=== PATIENT | male | born 1965 | race Caucasian/White ===

== ENCOUNTER 2016-12-29 19:19 | Emergency (ER) | payer BC ==
--- NOTE | 2016-12-29 19:54 | Emergency Department Record ---
History of Present Illness - General Chief Complaint: Neck Injury/Pain Stated Complaint: RT SIDE STIFF NECK Time Seen by Provider: 12/29/16 19:53 Source: Patient Mode of Arrival: Ambulatory Limitations: No limitations - History of Present Illness Initial Comments: The patient is here due to waking up this AM with R posterior neck pain. Later the pain worsened and now it is much worse with any head movement or twisting. He denies any trauma, headache, arm or leg numbness, tingling or weakness. He also denies any ST but has had a mild dry cough. MD Complaint: Neck pain Onset/Timin -: Days(s) Place: Home Severity: Mild Severity scale (1-10): 2 Quality: Sharp Consistency: Constant, Intermittent Improves With: Medication OTC/prescribed, Remaining still Worsens With: Movement of neck Associated Symptoms: None Treatments Prior to Arrival: Ibuprofen - Related Data Previous Rx's Medication Instructions Recorded Albuterol Sulfate 0.083% [Neb] 3 ml NEB .EVERY 4-6 HOURS PRN #30 03/14/ ml Cyclobenzaprine HCl [Flexeril] 10 mg PO TID PRN #20 tablet 12/29/16 Naproxen [Naprosyn] 500 mg PO BID #14 tablet. 12/29/16 Allergies Allergy/AdvReac Type Severity Reaction Status Date / Time lisinopril AdvReac vision Verified 12/29/16 19:38 problems Travel Screening - Travel/Exposure Within Last 30 Days Have you traveled within the last 30 days?: No - Travel/Exposure Within Last Year Have you traveled outside the [place] in the last year?: No - Additonal Travel Details Have you been exposed to anyone with a communicable illness?: No - Travel Symptoms Symptom Screening: None Review of Systems Constitutional: Denies: Chills, Fever Eyes: Denies: Eye discharge ENT: Denies: Congestion Respiratory: Reports: Cough. Denies: Dyspnea Cardiovascular: Denies: Arrhythmia, Chest pain Past Medical History - SOCIAL HISTORY Smoking Status: Former smoker Alcohol Use: None Drug Use: None - RESPIRATORY Hx Respiratory Disorders: Yes Hx Asthma: Yes Hx Bronchitis: Yes Hx Pneumonia: Yes Hx Sleep Apnea: Yes Hx of CPAP: Yes Comment:: seasonal allergy injections - CARDIOVASCULAR Hx Cardio Disorders: Yes Hx Hypertension: Yes (borderline-no meds) - NEURO Hx Neuro Disorders: No - GI Hx GI Disorders: Yes Hx of Polyps: Yes - Hx Genitourinary Disorders: No - ENDOCRINE Hx Endocrine Disorders: Yes Hx Diabetes: Yes (pre-diabetic) Hx Thyroid Disease: Yes (takes iodine and otc thyroid enhancement) - MUSCULOSKELETAL Hx Musculoskeletal Disorders: Yes Hx Arthritis: Yes - PSYCH Hx Psych Problems: Yes Hx Anxiety: Yes (20 yrs ago) Hx Depression: Yes - HEMATOLOGY/ONCOLOGY Hx Hematology/Oncology Disorders: No Family Medical History Any Significant Family History?: No Hx Cancer: Mother, Grandparents Hx Diabetes: Father Hx Heart Disease: Mother Hx Kidney Disease: Father Hx Stroke: Grandparents Physical Exam - General General Appearance: Alert, Oriented x3, Cooperative, No acute distress - Head Head exam: Atraumatic, Normocephalic, Normal inspection - Eye Eye exam: Normal appearance, PERRL, EOMI - ENT Throat exam: Normal inspection. negative: Tonsillar erythema, Tonsillar exudate - Neck Neck exam: Normal inspection, Full ROM, Tenderness (The R posterior neck is quite tender with mild spasm present. There is no swelling, bruising, or masses appreciated.), Other (The pain is 100% reproducible with palpation of the R posterior area and head turning to the R.). negative: Lymphadenopathy - Respiratory Respiratory exam: Normal lung sounds bilaterally. negative: Respiratory distress - Cardiovascular Cardiovascular Exam: Regular rate, Normal rhythm, Normal heart sounds - GI/Abdominal GI/Abdominal exam: Soft, Normal bowel sounds. negative: Tenderness - Extremities Extremities exam: Normal inspection, Full ROM, Normal capillary refill. negative: Tenderness - Neurological Neurological exam: Alert, Normal gait, Oriented X3. negative: Abnormal gait, Altered, Motor sensory deficit - Skin Skin exam: negative: Rash Course Vital Signs 12/29/16 19:37 Temperature 98.7 F Pulse Rate 71 Respiratory 22 Rate Blood Pressure 160/85 Pulse Ox 95 - Reevaluation(s) Reevaluation #1: The patient is doing a lot better. His pain is significantly less and he is able to turn his head with improved ROM. He is to rest at home and take the pain medicines as directed. He is to see his PCP if not better in 3 days and return to the ER if worse. 12/29/16 20:43 Disposition Disposition: Discharge Clinical Impression: Cervical paraspinal muscle spasm Disposition: Home, Self-Care Condition: (1) Good Instructions: Muscle Spasm (ED) Additional Instructions: Please rest for the next few days. Take the Naprosyn and Flexeril as directed. Please see your PCP if not better in 3 days. Return to the ER for any increased pain, headache, fever, or any arm or leg numbness or weakness. Prescriptions: Cyclobenzaprine HCl [Flexeril] 10 mg PO TID PRN #20 tablet PRN Reason: Pain Naproxen [Naprosyn] 500 mg PO BID #14 tablet.dr Forms: Patient Portal Access Time of Disposition: 20:42 Quality - Quality Measures Quality Measures: N/A - Blood Pressure Screening View Details: Yes Does Patient Have Any of the Following: No Blood Pressure Classification: Pre-Hypertensive BP Reading Systolic Measurement: 160 Diastolic Measurement: 85 Screening for High Blood Pressure: < Pre-Hypertensive BP, F/U Documented > [ [id number]] Pre-Hypertensive Follow-up Interventions: Referral to alternative/primary care provider.
[2016-12-29] MEDS ORDERED: KETOROLAC 30 MG/ML VIAL IM ONE (19:59)
[2016-12-29] MEDS ORDERED: ORPHENADRINE CITRATE 60MG/2ML VIAL IM ONE (19:59)
== END 2016-12-29 20:52 | disposition home or self-care (01) ==
LOC: ER 19:19
DX: M62.838 Other muscle spasm (principal); R05 Cough
CPT/HCPCS: 99283 ×2; 96372; J1885; J2360

== ENCOUNTER 2019-02-16 03:18 | Emergency (ER) | payer BC ==
--- NOTE | 2019-02-16 03:30 | Emergency Department Record ---
History of Present Illness - General Chief Complaint: Shortness of breath Stated Complaint: SOB Time Seen by Provider: 02/16/19 03:29 Source: Patient Mode of Arrival: Ambulatory Limitations: No limitations - History of Present Illness Initial Comments: 53 yo male presents to ED for evaluation of worsening cough and difficulty in breathing symptoms over the past several days. Patient has been taking Prednisone and Doxycycline for his symptoms for the past several days without improvement. Patient denies chest pain or discomfort, but reports that he is unable to breathe due to his cough symptoms. Patient reports history of frequent episodes of bronchitis and pneumonia. Patient denies fevers, chills, or abdominal pain symptoms on examination. MD Complaint: Cough, Shortness of breath Onset/Timin -: Week(s) Severity: Moderate Quality: Aching Consistency: Constant Improves With: Nothing Worsens With: Inspiration Known History Of: Asthma Associated Symptoms: Denies other symptoms Treatments Prior to Arrival: Bronchodilator - Related Data Home Oxygen Therapy: No Home Medications Medication Instructions Recorded Confirmed Last Taken Hydrocortisone 10 mg PO BID 02/16/19 02/16/19 02/15/19 Mometasone/Formoterol [Dulera 200 2 puff INH BID 02/16/19 02/16/19 02/16/19 Mcg/5 Mcg Inhaler] Previous Rx's Medication Instructions Recorded Ibuprofen [Motrin] 800 mg PO Q6H PRN #30 tab 02/16/19 Prednisone [Prednisone 20Mg] 20 mg PO BID #12 tab 02/16/19 Promethazine HCl/Codeine 5 ml PO Q8H PRN #118 ml 02/16/19 [Phenergan W/Codeine] Allergies Allergy/AdvReac Type Severity Reaction Status Date / Time lisinopril AdvReac vision Verified 12/29/16 19:38 problems all plants AdvReac RASH Uncoded 02/16/19 03:48 Review of Systems Constitutional: Denies: Chills, Fever, Malaise, Night sweats Eyes: Denies: Eye discharge, Eye pain ENT: Reports: Congestion. Denies: Ear pain, Epistaxis Respiratory: Reports: Cough, Dyspnea, Wheezes Cardiovascular: Reports: Dyspnea on exertion. Denies: Chest pain, Edema, Palpitations Endocrine: Denies: Fatigue, Heat or cold intolerance Gastrointestinal: Denies: Abdominal pain, Nausea, Vomiting Genitourinary: Denies: Incontinence, Retention Musculoskeletal: Denies: Arthralgia, Back pain Skin: Denies: Bruising, Change in color Neurological: Denies: Abnormal gait, Confusion, Headache, Seizure Psychiatric: Denies: Anxiety Hematological/Lymphatic: Denies: Anemia, Blood Clots Past Medical History - SOCIAL HISTORY Smoking Status: Former smoker Drug Use: None - RESPIRATORY Hx Respiratory Disorders: Yes Hx Asthma: Yes Hx Bronchitis: Yes Hx Pneumonia: Yes Hx Sleep Apnea: Yes Hx of CPAP: Yes Comment:: seasonal allergy injections - CARDIOVASCULAR Hx Cardio Disorders: Yes Hx Hypertension: Yes (borderline-no meds) - NEURO Hx Neuro Disorders: No - GI Hx GI Disorders: Yes Hx of Polyps: Yes - Hx Genitourinary Disorders: No - ENDOCRINE Hx Endocrine Disorders: Yes Hx Diabetes: Yes (pre-diabetic) Hx Thyroid Disease: Yes (takes iodine and otc thyroid enhancement) - MUSCULOSKELETAL Hx Musculoskeletal Disorders: Yes Hx Arthritis: Yes - PSYCH Hx Psych Problems: Yes Hx Anxiety: Yes (20 yrs ago) Hx Depression: Yes - HEMATOLOGY/ONCOLOGY Hx Hematology/Oncology Disorders: No Family Medical History Hx Cancer: Mother, Grandparents Hx Diabetes: Father Hx Heart Disease: Mother Hx Kidney Disease: Father Hx Stroke: Grandparents Physical Exam - General General Appearance: Alert, Oriented x3, Cooperative, Moderate distress Limitations: No limitations - Head Head exam: Atraumatic, Normocephalic, Normal inspection Head exam detail: negative: Abrasion, Contusion, Ayoub's sign, General tenderness, Hematoma, Laceration - Eye Eye exam: Normal appearance. negative: Conjunctival injection, Periorbital swelling, Periorbital tenderness, Scleral icterus - ENT Ear exam: negative: Auricular hematoma, Auricular trauma Nasal Exam: negative: Active bleeding, Discharge, Dried blood, Foreign body Mouth exam: negative: Drooling, Laceration, Muffled voice, Tongue elevation - Neck Neck exam: Normal inspection. negative: Meningismus, Tenderness - Respiratory Respiratory exam: Normal lung sounds bilaterally, Other (Non-stop cough symptoms are present on examination). negative: Rales, Respiratory distress, Rhonchi, Stridor - Cardiovascular Cardiovascular Exam: Regular rate, Normal rhythm, Normal heart sounds - GI/Abdominal GI/Abdominal exam: Soft. negative: Rebound, Rigid, Tenderness - Rectal Rectal exam: Deferred - exam: Deferred - Extremities Extremities exam: Pedal edema. negative: Calf tenderness, Tenderness - Back Back exam: Denies: CVA tenderness (R), CVA tenderness (L) - Neurological Neurological exam: Alert, Normal gait, Oriented X3 - Psychiatric Psychiatric exam: Normal affect, Normal mood - Skin Skin exam: Normal color. negative: Abrasion Type of lesion: negative: abrasion Course - Reevaluation(s) Reevaluation #1: 02/16/19 03:30 EKG: NSR 92 Normal intervals, LAD No acute ST-T wave changes Reevaluation #2: 02/16/19 04:26 Laboratory studies were reviewed and appear grossly unremarkable for an acute process except for the following: Glucose 226 AST 141 ALT 144 CXR: No acute process Patient was updated on all results, symptoms are improved following duoneb and solumedrol in the ED. Patient has (1) day of Doxycycline of his 7-day course. Patient also has a nebulizer at home that can be used for his symptoms. Patient appears stable for discharge with Prednisone, Motrin 800 mg, and Phenergan with Codeine. Patient is in agreement with the plan of care as discussed. Medical Decision Making - Lab Data Result diagrams: 02/16/19 03:30 02/16/19 03:30 Disposition Disposition: Discharge Clinical Impression: Acute bronchitis Qualifiers: Bronchitis organism: unspecified organism Qualified Code(s): J20.9 - Acute bronchitis, unspecified Disposition: Home, Self-Care Condition: (2) Stable Instructions: Acute Bronchitis (ED) Additional Instructions: Return to ED if your symptoms worsen or if you have any concerns. Motrin, Phenergan with Codeine, and Prednisone as directed. Follow-up with your family doctor in 3-5 days as directed. Prescriptions: Ibuprofen [Motrin] 800 mg PO Q6H PRN #30 tab PRN Reason: Pain - Mod To Severe (5-10) Promethazine HCl/Codeine [Phenergan W/Codeine] 5 ml PO Q8H PRN #118 ml PRN Reason: Cough Prednisone [Prednisone 20Mg] 20 mg PO BID #12 tab Forms: Patient Portal Access Time of Disposition: 04:36 Quality - Quality Measures Quality Measures: N/A - Blood Pressure Screening Does Patient Have Any of the Following: Active Dx of HTN Blood Pressure Classification: Hypertensive Reading Systolic Measurement: 211 Diastolic Measurement: 91 Screening for High Blood Pressure: Patient Exclusion, Hx of HTN [[id number]]
[2019-02-16] MEDS ORDERED: METHYLPREDNISOLONE PF 125MG/VIAL IVP ONE (03:34)
[2019-02-16] MEDS ORDERED: IPRATROPIUM/ALBUTEROL (0.5MG/3MG) NEB INH ONE (03:35)
[2019-02-16 03:52] LABS: ABSOLUTE NEUTROPHIL COUNT 5.02; BASO % 0.1 % (0-6); EOS % 2.8 % (0-6); HEMATOCRIT 45.3 % (42.0-52.0); HEMOGLOBIN 15.5 gm/dl (14.0-18.0); LYMPH % 15.6 % (16-45); MEAN CELL VOLUME 97.6 fl (81-97); MEAN CORPUSCULAR HEMOGLOBIN 33.4 pg (27-33); MEAN CORPUSCULAR HGB CONC 34.2 g/dl (32-36); MEAN PLATELET VOLUME 9.9 fl (7.4-10.4); MONO % 7.5 % (0-9); PLATELET COUNT 167 K/uL (130-400); RED BLOOD COUNT 4.64 M/uL (4.40-5.70); RED CELL DISTRIBUTION WIDTH 14.2 % (11.5-14.5); WHITE BLOOD COUNT W/O DIFF 6.8 K/uL (4.2-12.2)
[2019-02-16 04:13] LABS: BLOOD UREA NITROGEN 11 mg/dL (6-20); CREATININE 0.8 mg/dL (0.7-1.2); EST GLOMERULAR FILTRATION RATE > 60 mL/min
[2019-02-16 04:14] LABS: TOTAL PROTEIN 7.2 g/dL (6.6-8.7)
[2019-02-16 04:16] LABS: GLUCOSE,RANDOM 226 mg/dL (74-109)
[2019-02-16 04:19] LABS: ALB/GLOB RATIO 1.7 (1.1-1.8); ALBUMIN 4.5 g/dL (4.0-5.0); ALKALINE PHOSPHATASE 33 U/L (40-129); ALT/SGPT 144 U/L (<41); AST/SGOT 141 U/L (10.0-50.0)
--- NOTE | 2019-02-16 04:23 | RADIOLOGY REPORT ---
EXAMINATION: Two View Chest Radiographs EXAM DATE: 02/16/2019 4:10 AM TECHNIQUE: Frontal and lateral views INDICATION: MELISSA COMPARISON: 12/12/2016 ENCOUNTER: Not applicable FINDINGS: The heart, mediastinum, and pulmonary vasculature are normal. No lung consolidation or pleural effu sions are present. IMPRESSION: No acute cardiopulmonary disease is present. Dictated by: Martha Simmons MD on 02/16/2019 4:21 AM. .
== END 2019-02-16 04:58 | disposition home or self-care (01) ==
LOC: ER 03:18
DX: J20.9 Acute bronchitis, unspecified (principal); R06.02 Shortness of breath; Z87.891 Personal history of nicotine dependence; I10 Essential (primary) hypertension
CPT/HCPCS: 71046; 80053; 85025; 93005; 93010; 94640; 96374; 99284; J2930

== ENCOUNTER 2019-03-14 17:06 | Emergency (ER) | payer BC ==
--- NOTE | 2019-03-14 18:11 | Emergency Department Record ---
History of Present Illness - General Chief complaint: ENT Stated complaint: DENTAL PAIN Time Seen by Provider: 03/14/19 18:01 Source: Patient Mode of Arrival: Ambulatory Limitations: No limitations - History of Present Illness Initial comments: The patient is here due to R upper dental pain for 3 days. He was seen in an UC for it and given [place] and an Abx. He was told if not better to go to the ER for a dental block. There is no hx of fever, swelling, or ST. complaint: Tooth pain Onset/Timin -: Days(s) Severity: Moderate Severity scale (1-10): 7 Quality: Aching Consistency: Constant Improves with: None Worsens with: None Context- Dental: History of dental caries Associated Symptoms: Toothache - Related Data Home Medications Medication Instructions Recorded Confirmed Last Taken Hydrocodone/Acetaminophen [[place] 1 each PO Q6HR PRN 03/14/19 03/14/19 03/14/19 5-325 Tablet] Metformin ER HCl [Glucophage Xr] 500 mg PO BID 03/14/19 03/14/19 03/14/19 Penicillin V Potassium 500 mg PO QID 03/14/19 03/14/19 03/14/19 Previous Rx's Medication Instructions Recorded Ibuprofen [Motrin] 800 mg PO Q6H PRN #30 tab 02/16/19 Promethazine HCl/Codeine 5 ml PO Q8H PRN #118 ml 02/16/19 [Phenergan W/Codeine] Allergies Allergy/AdvReac Type Severity Reaction Status Date / Time lisinopril AdvReac vision Verified 03/14/19 17:16 problems all plants AdvReac RASH Uncoded 02/16/19 03:48 Travel Screening - Travel/Exposure Within Last 30 Days Have you traveled within the last 30 days?: No - Travel/Exposure Within Last Year Have you traveled outside the [place] in the last year?: No - Additonal Travel Details Have you been exposed to anyone with a communicable illness?: No - Travel Symptoms Symptom Screening: None Review of Systems Constitutional: Denies: Chills, Fever Past Medical History - SOCIAL HISTORY Smoking Status: Former smoker Alcohol Use: None Drug Use: None - RESPIRATORY Hx Respiratory Disorders: Yes Hx Asthma: Yes Hx Bronchitis: Yes Hx Pneumonia: Yes Hx Sleep Apnea: Yes Hx of CPAP: Yes Comment:: seasonal allergy injections - CARDIOVASCULAR Hx Cardio Disorders: Yes Hx Hypertension: Yes (borderline-no meds) - NEURO Hx Neuro Disorders: No - GI Hx GI Disorders: Yes Hx of Polyps: Yes - Hx Genitourinary Disorders: No - ENDOCRINE Hx Endocrine Disorders: Yes Hx Diabetes: Yes (on metformin) Hx Thyroid Disease: Yes (takes iodine and otc thyroid enhancement) - MUSCULOSKELETAL Hx Musculoskeletal Disorders: Yes Hx Arthritis: Yes - PSYCH Hx Psych Problems: Yes Hx Anxiety: Yes (20 yrs ago) Hx Depression: Yes - HEMATOLOGY/ONCOLOGY Hx Hematology/Oncology Disorders: No Family Medical History Any Significant Family History?: Yes Hx Cancer: Mother, Grandparents Hx Diabetes: Father Hx Heart Disease: Mother Hx Kidney Disease: Father Hx Stroke: Grandparents Physical Exam - General General Appearance: Alert, Oriented x3, Cooperative, No acute distress - Head Head exam: Atraumatic, Normocephalic - Eye Eye exam: Normal appearance, PERRL - ENT ENT exam: Normal exam (There is no facial edema.) Teeth exam: Normal inspection, Dental tenderness # (R upper 2nd molar where the patient has had a root canal and crown. There is no gum line swelling.) Throat exam: Normal inspection. negative: Tonsillar erythema, Tonsillar exudate - Neck Neck exam: Normal inspection, Full ROM. negative: Tenderness - Respiratory Respiratory exam: Normal lung sounds bilaterally. negative: Respiratory distress - Cardiovascular Cardiovascular Exam: Regular rate, Normal rhythm, Normal heart sounds - Extremities Extremities exam: Normal inspection - Neurological Neurological exam: Alert. negative: Motor sensory deficit Course Vital Signs 03/14/19 17:23 Temperature 98.9 F Pulse Rate 80 Respiratory 20 Rate Blood Pressure 208/113 Pulse Ox 96 - Reevaluation(s) Reevaluation #1: Procedure note: The R upper 2nd molar was anesth. using 2.5 cc's of [place] with sensoricaine. The patient did receive moderate relief. 03/14/19 18:24 Reevaluation #2: The patient is doing better at this time. He is already on an oral Abx and does have an community associate to F/U with. The patient also has a long hx of HTN unresponsive to medicines. He does see a Nipple [facility] Operator for it and states he is allergic to all medicines for it. The elevated BP today is not unusual for him. 03/14/19 18:25 Disposition Disposition: Discharge Clinical Impression: Pain, dental Disposition: Home, Self-Care Condition: (2) Stable Instructions: Toothache (ED) Additional Instructions: Please continue your home medicines and please see your dentist tomorrow for recheck. Forms: Patient Portal Access Time of Disposition: 18:26 Quality - Quality Measures Quality Measures: Adult Bronchitis (18-64yr) - Adult Bronchitis Quality Measure: Measure #116: Avoidance of ABX w/Adult Bronchitis ICD10 Codes Entered: Yes View Details: Yes Is patient being admitted: No Avoidance of ABX w/Bronchitis: <ABX neither prescribed nor dispensed> [4124F] - Blood Pressure Screening View Details: Yes Does Patient Have Any of the Following: Active Dx of HTN Blood Pressure Classification: Hypertensive Reading Systolic Measurement: 208 Diastolic Measurement: 113 Screening for High Blood Pressure: Patient Exclusion, Hx of HTN [G9744]
== END 2019-03-14 18:50 | disposition home or self-care (01) ==
LOC: ER 17:06
DX: K08.89 Other specified disorders of teeth and supporting structures (principal); I10 Essential (primary) hypertension; Z87.891 Personal history of nicotine dependence
CPT/HCPCS: 99283